=== PATIENT | male | born 2005 | race Caucasian/White ===

== ENCOUNTER 2023-12-12 14:56 | Emergency (ER) | payer OTHER ==
[~2023-12-12] VITALS: Ht 182.9 cm; Wt 99.8 kg
[2023-12-12 15:09] VITALS: BP 129/71
[2023-12-12 15:15] VITALS: BP 129/79
[2023-12-12] MEDS ORDERED: Diph, Acellular Pertussis, Tet 0.5 ML/VIAL (Tdap) SDV IM ONE (15:15)
[2023-12-12 15:30] VITALS: BP 125/76
[2023-12-12 17:25] VITALS: BP 128/66
== END 2023-12-12 16:50 | disposition home or self-care (01) | DRG 605 ==
LOC: ED 14:56
PROC: 0HQLXZZ Repair Left Lower Leg Skin, External Approach (ICD-10-PCS; principal; 2023-12-12)
DX: S71.112A Laceration without foreign body, left thigh, initial encounter (principal); V86.55XA Driver of 3- or 4- wheeled all-terrain vehicle (ATV) injured in nontraffic accident, initial encounter